=== PATIENT | female | born 1995 | race Two or more races ===

== ENCOUNTER 2018-10-29 14:50 | Emergency (ER) | payer OTHER ==
[~2018-10-29] VITALS: Ht 160 cm; Wt 45.8 kg
[2018-10-29] MEDS ORDERED: ACID REDUCER10 MG (14:58)
== END 2018-10-29 21:54 | disposition home or self-care (01) ==
LOC: ER 14:50
DX: O21.0 Mild hyperemesis gravidarum (principal); Z34.81 Encounter for supervision of other normal pregnancy, first trimester

== ENCOUNTER 2019-01-30 09:41 | Emergency (ER) | payer OTHER ==
[~2019-01-30] VITALS: Ht 160 cm; Wt 50.3 kg
[~2019-01-30 09:41] MED LIST: ACID REDUCER10 MG
== END 2019-01-30 14:47 | disposition home or self-care (01) ==
LOC: ER 09:41
DX: J11.1 Influenza due to unidentified influenza virus with other respiratory manifestations (principal)

== ENCOUNTER 2019-05-16 02:09 | Inpatient (IN) | payer OTHER ==
[~2019-05-16] VITALS: Ht 160 cm; Wt 57.2 kg
[2019-05-16] MEDS ORDERED: PRENATAL TABLE1 EAC1 PO ×2 (02:25→06:31)
[2019-05-16] MEDS ORDERED: VALTREX1000 MG PO (02:26)
[2019-05-16] MEDS ORDERED: ZANTAC300 MG PO (06:30)
== END 2019-05-18 14:37 | DRG 807 ==
LOC: LDR 02:09 → OB/GYN 02:09
PROVIDERS: ADMIT Obstetrics & Gynecology
PROC: 10E0XZZ Delivery of Products of Conception, External Approach (ICD-10-PCS; principal; 2019-05-16)
PROC: 0HQ9XZZ Repair Perineum Skin, External Approach (ICD-10-PCS; 2019-05-16)
PROC: 4A0HXFZ Measurement of Products of Conception, Cardiac Rhythm, External Approach (ICD-10-PCS; 2019-05-16)
DX: O70.0 First degree perineal laceration during delivery (principal); Z37.0 Single live birth; Z3A.37 37 weeks gestation of pregnancy

== ENCOUNTER 2021-01-30 06:53 | Inpatient (IN) | payer OTHER ==
[~2021-01-30] VITALS: Ht 160 cm; Wt 54.4 kg
[~2021-01-30 06:53] MED LIST changes: +PRENATAL TABLE1 EAC1 PO; +VALTREX1000 MG PO; +ZANTAC300 MG PO
[2021-01-30] MEDS ORDERED: PRENATAL TABLE1 EAC2 PO (15:18)
== END 2021-02-01 19:11 | disposition home or self-care (01) | DRG 798 ==
LOC: OB/GYN 06:53 → LDR 06:53 → OB/GYN 01-31 00:26
PROVIDERS: ADMIT Obstetrics & Gynecology; ATTEND Obstetrics & Gynecology
PROC: 0UB70ZZ Excision of Bilateral Fallopian Tubes, Open Approach (ICD-10-PCS; 2021-01-30)
PROC: 10907ZC Drainage of Amniotic Fluid, Therapeutic from Products of Conception, Via Natural or Artificial Opening (ICD-10-PCS; 2021-01-30)
PROC: 4A1HXFZ Monitoring of Products of Conception, Cardiac Rhythm, External Approach (ICD-10-PCS; 2021-01-30)
PROC: 10E0XZZ Delivery of Products of Conception, External Approach (ICD-10-PCS; principal; 2021-01-30 21:30)
DX: O80 Encounter for full-term uncomplicated delivery (principal); Z37.0 Single live birth; Z3A.39 39 weeks gestation of pregnancy; Z20.822 Contact with and (suspected) exposure to COVID-19; Z30.2 Encounter for sterilization